=== PATIENT | male | born 1955 | race Caucasian/White ===

== ENCOUNTER 2021-08-14 08:48 | Day surgery (SDC) | payer OTHER ==
[~2021-08-14] VITALS: Ht 167.6 cm; Wt 50.8 kg
[2021-08-14] MEDS ORDERED: PROAIR HFA0.09 MG/AC IH (09:04)
[2021-08-14] MEDS ORDERED: ASPIRIN E.C. 8181 MG PO (09:04)
[2021-08-14] MEDS ORDERED: MASON NATURAL2000 IU PO (09:05)
[2021-08-14] MEDS ORDERED: REFRESH TEARS 330 ML OP (09:05)
[2021-08-14] MEDS ORDERED: DEPAKOTE ER 50500 MG PO (09:06)
[2021-08-14] MEDS ORDERED: RT ADVAIR 128 DISKUS IH (09:06)
[2021-08-14] MEDS ORDERED: ZESTRIL 20MG TA20 MG PO (09:07)
[2021-08-14] MEDS ORDERED: PATADAY5 ML OP (09:07)
[2021-08-14] MEDS ORDERED: FOLIC ACID 11 MG/TA1 PO (09:07)
[2021-08-14] MEDS ORDERED: SPIRIVA RE2.5 MCG/Ac IH (09:08)
[2021-08-14] MEDS ORDERED: VIAGRA100 M1 PO (09:08)
[2021-08-14] MEDS ORDERED: ZOCOR 40MG40 MG PO (09:08)
[2021-08-14 09:23] VITALS: BP 161/58; PULSE 62; TEMP 98.3
[2021-08-14 11:40] VITALS: BP 133/61; PULSE 62; TEMP 97.7
[2021-08-14] MEDS ORDERED: NORCO 325 MG-51 TAB PO (11:43)
--- NOTE | 2021-08-14 11:52 | NUR ---
1140: Patient arrived back into [facility] from [facility]. Report recieved from DANIELA Parker and LENNY Rg. Patient responds to physical touch stimuli but does not open eyes at this time. Patient vitally stable.
[2021-08-14 11:55] VITALS: BP 144/56; PULSE 58
[2021-08-14 12:10] VITALS: BP 144/69; PULSE 59
[2021-08-14 12:25] VITALS: BP 155/75; PULSE 62
--- NOTE | 2021-08-14 12:25 | NUR ---
1155: soraida in room with patient. Patient awakens to name. Able to keep eyes open >20 sec. Patient states he would a blueberry muffin, pudding, and sprite. 1220: Patient states he would like to use restroom. IV saline locked. Patient ambulated to restroom via stand by assist with cane.
--- NOTE | 2021-08-14 14:48 | NUR ---
1235: Patient meets discharge criteria. Patient to get dressed with assistance of friend. 1240: Went through discharge instructions with patient and friend. 1245: Patient escorted to patient entrance via wheelchair. Patient got into personal vehicle unassisted and left in the care of his friend.
== END 2021-08-14 13:00 | disposition home or self-care (01) ==
LOC: SDCO 08:48
DX: K40.20 Bilateral inguinal hernia, without obstruction or gangrene, not specified as recurrent (principal); D17.6 Benign lipomatous neoplasm of spermatic cord; J43.1 Panlobular emphysema; F17.210 Nicotine dependence, cigarettes, uncomplicated; F10.21 Alcohol dependence, in remission; Z79.899 Other long term (current) drug therapy
CPT/HCPCS: C1781; J1100; J2250; J2704; J2795; J3010; J7120